=== PATIENT | female | born 1970 | race Caucasian/White ===

== ENCOUNTER 2024-05-07 09:17 | Emergency (ER) | payer SELFPAY ==
[2024-05-07 09:31] VITALS: BP 142/86; PULSE 75; RESP 16; TEMP 36.7; O2SAT 100; BMI 26.6
--- NOTE | 2024-05-07 09:48 | CT_ITS ---
WS: [id number] CT cervical spine. Additional two-dimensional coronal and sagittal reconstruction was performed. 05/07/2024 Clinical Data: neck pain w R arm pain Comparison: None. DLP: 224.[address] scans at [facility] use at least one of these dose optimization techniques: automated exposure control; mA and/or kV adjustment per patient size (includes targeted exams where dose is matched to clinical indication); or iterative reconstruction. Findings: No compression fractures are seen. There is degenerative disc narrowing at C4-C5 and C5-C6 with osteophyte formation. There is loss of the normal lordotic curvature. The spinous processes are in good alignment. The odontoid is unremarkable. There is no prevertebral soft tissue swelling. The soft tissues of the cervical spine and the lung apices are not remarkable. CT/CT cervical spin wo con* [id number] Impression: 1. Degenerative disc narrowing at C4-C5 and C5-C6 with osteophytes. 2. Loss of normal lordotic curvature.
[2024-05-07 09:56] VITALS: BP 138/84; PULSE 83; O2SAT 100
--- NOTE | 2024-05-07 10:24 | ED_ITS ---
HPI - Extremity Problem General: Chief complaint: Extremity Problem,Nontraumatic Stated complaint: right side arm pain Time Seen by Provider: 05/07/24 09:35 History of Present Illness: 53-year-old female who presents to the e mergency room with complaint of neck pain with pain radiating to the right arm. States it began after she had a coughing fit while she was in the shower. No previous surgeries to the neck. No other traumatic injuries or falls. Associated symptoms: Deny chest pain, fever(s) or rash Related Data Previous Rx's ?Medication ?Instructions ?Recorded diclofenac sodium 75 mg 75 mg PO Q12H PRN pain #20 t abs 05/07/24 tablet,delayed release prednisone 20 mg tablet 20 mg PO TID #15 tabs tizanidine 4 mg tablet 4 mg PO Q6H PRN muscle spast icity 05/07/24 #20 tabs Allergies Allergy/AdvReac Type Severity Reaction Status Date / Time No Known Allergies Allergy Verified 05/07/24 09:34 Review of Systems Const: Denies: fever(s) or chills Card: Denies: chest pain Resp: Denies: dyspnea GI: Denies: abdominal pain : Denies: dysuria, urinary frequency or urinary urgency Musc: Reports: neck pain; Denies: back pain Skin/Breast: Denies: rash Physical Exam Const: GENERAL APPEARANCE: cooperative ORIENTATION/CONSCIOUSNESS: Yes awake, Yes oriented to person, Yes oriented to place and Yes oriented to time HENMT: COMMON NORMALS: normocephalic, atraumatic and hearing grossly normal bilaterally HEAD & SCALP: normocephalic and atraumatic Resp: COMMON NORMALS: normal respiratory effort, No retractions, No use of accessory muscles and clear to auscultation bilaterally AUSCULTATION: clear to auscultation bilaterally Cardio: COMMON NORMALS: regular rate, regular rhythm and No murmurs present (Cardio) RATE: regular rate RHYTHM: regular rhythm Extremity: COMMON NORMALS: normal to inspection, capillary refill normal, no clubbing, cyanosis or edema, no calf tenderness and no pedal edema Neuro: SENSORIUM/ORIENTATION: Yes oriented to person, Yes oriented to place and Yes oriented to time OTHER: Brachioradialis tendon reflex bilaterally is +1/4. 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 Will discharge patient home steroid taper antiemetics anti-inflammatories and have her follow-up with orthospine clinic for further evaluation including possible advanced imaging if felt appropriate Lab Data Radiology Impressions Cervical Spine CT 05/07/24 09:48 Impression: 1. Degenerative disc narrowing at C4-C5 and C5-C6 with osteophytes. 2. Loss of normal lordotic curvature. All radiology interpretation(s) finalized by discharge Discharge Plan Discharge Patient Disposition: Home Clinical Impression: Cervical radiculopathy Condition: Stable Prescriptions: New tizanidine 4 mg tablet 4 mg PO Q6H PRN (Reason: muscle spasticity) Qty: 20 0RF Rx Instructions: do not exceed 3 doses per 24 hrs prednisone 20 mg tablet 20 mg PO TID Qty: 15 0RF Rx Instructions: 1 p.o. 3 times daily x3 days, 1 p.o. twice daily x2 days, 1 p.o. daily x2 days diclofenac sodium 75 mg tablet,delayed release (DR/EC) 75 mg PO Q12H PRN (Reason: pain) Qty: 20 0RF Discharge Orders: Discharge ED (Routine); Ordered 05/07/24 Ordered By: Mejia Awan Discharge Diet: Usual diet Discharge Activity: Increase activity as tolerated Patient Instructions: Opioid Safety, Pain Management Activity Restrictions/Additional Instructions: Thank you for choosing [facility] for your healthcare needs today. It is very important that you follow up as instructed or that you return to the Emergency Department should you have concerns or if your condition changes or worsens in any way. You were seen in the emergency room with complaint of neck pain with pain radiating to your right arm. CT shows some Arthritic changes and degenerative disc changes. Recommend that you follow-up with orthopedic spine surgery they can do further advanced imaging if deemed appropriate in the interim we will put you on a course of prednisone and use diclofenac and tizanidine as needed. Print Language: Armenian Coding Level of Care Code ED General Foreman for Alvarez Hudson
[2024-05-07] MEDS: dexamethasone 10 mg/mL INJ IM (10:51)
[2024-05-07] MEDS: ketorolac 30 mg/mL INJ IVP (10:52)
[2024-05-07] MEDS: orphenadrine 30 mg/mL Inj 2 mL 60 MG IM (10:52)
--- NOTE | 2024-05-11 08:59 | DCPLANNER ---
Message sent to Ortho-Medical Decision Making Cervical radiculopathy. Will discharge patient home steroid taper antiemetics anti-inflammatories and have her follow-up with orthospine clinic for further evaluation including possible advanced imaging if felt appropriate
== END 2024-05-07 13:09 | disposition home or self-care (01) ==
PROVIDERS: Emergency Provider Family Medicine
DX: M54.12 Radiculopathy, cervical region (principal)
CPT/HCPCS: 72125; 96372; 96374; 99285; J1100; J1885; J2360

== ENCOUNTER 2024-05-15 12:22 | Emergency (ER) | payer SELFPAY ==
[2024-05-15 12:50] VITALS: BP 157/95; PULSE 81; RESP 18; TEMP 36.6; O2SAT 99; BMI 26.6
--- NOTE | 2024-05-15 13:10 | W.ED.EXTPRO ---
HPI - Extremity Problem General: Chief complaint: Extremity Problem,Nontraumatic Stated complaint: roight should pain Time Seen by Provider: 05/15/24 13:06 History of Present Illness: 53-year-old female presents emergency room with complaints of right shoulder pain. She was seen on 05/07 denies similar complaints. Patient states that began after she had coughed while in the shower and suddenly felt the pain shooting down her from her neck into her right shoulder and arm. CT done at previous visit showed arthritic changes in the cervical spine as well as loss of disc space. Patient was treated with anti-inflammatories steroids and muscle relaxers referred to the orthopedic spine clinic. Associated symptoms: Deny chest pain, fever(s) or rash Related Data Previous Rx's ?Medication ?Instructions ?Recorded diclofenac sodium 75 mg 75 mg PO Q12H PRN pain #20 tabs 05/07/24 tablet,delayed release prednisone 20 mg tablet 20 mg PO TID #15 tabs 05/07/24 tizanidine 4 mg tablet 4 mg PO Q6H PRN muscle spasticity 05/07/24 #20 tabs pregabalin 75 mg capsule (Lyrica) 75 mg PO BID #60 caps 05/15/24 Allergies Allergy/AdvReac Type Severity Reaction Status Date / Time No Known Allergies Allergy Verified 05/07/24 09:34 Review of Systems Const: Denies: fever(s) or chills Card: Denies: chest pain Resp: Denies: dyspnea GI: Denies: abdominal pain : Denies: dysuria, urinary frequency or urinary urgency Musc: Denies: neck pain or back pain Skin/Breast: Denies: rash Physical Exam Const: COMMON NORMALS: no acute distress GENERAL APPEARANCE: cooperative and comfortable ORIENTATION/CONSCIOUSNESS: Yes awake, Yes oriented to person, Yes oriented to place and Yes oriented to time HENMT: COMMON NORMALS: normocephalic, atraumatic and hearing grossly normal bilaterally HEAD & SCALP: normocephalic and atraumatic Resp: COMMON NORMALS: normal respiratory effort, No retractions, No use of accessory muscles and clear to auscultation bilaterally AUSCULTATION: clear to auscultation bilaterally Cardio: COMMON NORMALS: regular rate, regular rhythm and No murmurs present (Cardio) RATE: regular rate RHYTHM: regular rhythm Extremity: COMMON NORMALS: normal to inspection, capillary refill normal, no clubbing, cyanosis or edema, no calf tenderness and no pedal edema OTHER: Examination of the right arm and shoulder neurovascular intact full range of motion negative for signs of impingement. No pain with abduction no difficulty with flexion. No pain with internal or external rotation. Neuro: SENSORIUM/ORIENTATION: Yes oriented to person, Yes oriented to place and Yes oriented to time Skin: COMMON NORMALS: no rashes or lesions noted GENERAL SKIN EXAM: no rashes or lesions noted Course Vital Signs: Vital signs: Vital Signs Temperature 97.8 F 05/15/24 12:50 Pulse Rate 75 05/15/24 13:59 Respiratory Rate 16 05/15/24 13:59 Blood Pressure 137/78 05/15/24 13:59 Pulse Oximetry 97 05/15/24 13:59 Oxygen Delivery Me thod Room Air 05/15/24 12:50 MDM - Extremity (Nontraumatic) Medical Decision Making Exam and history still more consistent with cervical nerve impingement irritation. He still has full function but does have radicular-like pain encouraged to follow-up with orthopedic spine surgery where they can do further imaging if felt appropriate. Continue to use diclofenac and tizanidine as needed started Lyrica 75 twice daily. EKG done does not show any acute changes and x-ray of the right shoulder did not show any acute arthritic changes no fractures Medical Records I reviewed the patient's medical records. Lab Data I reviewed the patient's lab results. Radiology Impressions Shoulder X-Ray 05/15/24 13:12 IMPRESSION: No acute findings. All radiology interpretation(s) finalized by discharge Discharge Plan Discharge Patient Disposition: Home Clinical Impression: Cervical radiculopathy Condition: Stable Prescriptions: New pregabalin [Lyrica] 75 mg capsule 75 mg PO BID Qty: 60 0RF No Action tizanidine 4 mg tablet 4 mg PO Q6H PRN (Reason: muscle spasticity) Qty: 20 0RF Rx Instructions: do not exceed 3 doses per 24 hrs prednisone 20 mg tablet 20 mg PO TID Qty: 15 0RF Rx Instructions: 1 p.o. 3 times daily x3 days, 1 p.o. twice daily x2 days, 1 p.o. daily x2 days diclofenac sodium 75 mg tablet,delayed release (DR/EC) 75 mg PO Q12H PRN (Reason: pain) Qty: 20 0RF Discharge Orders: Discharge ED (Routine); Ordered 05/15/24 Ordered By: Mejia Awan Discharge Diet: Usual diet Discharge Activity: Resume usual activity Patient Instructions: Opioid Safety, Pain Management Activity Restrictions/Additional Instructions: Thank you for choosing [facility] for your healthcare needs today. It is very important that you follow up as instructed or that you return to the Emergency Department should you have concerns or if your condition changes or worsens in any way. You are seen in the emergency room with complaint of right arm pain. X-ray shoulder is negative. EKG did not show any acute changes. Your description of symptoms is consistent with a cervical nerve root irritation. You had related you had improvement with the steroids then worsened again recommend that you start Lyrica 75 mg 1 tablet twice a day. Follow-up with orthopedic clinic for further evaluation. No sign of rotator cuff injury on exam today Print Language: Turkish Coding Level of Care Code ED Web Press Jogger for Alvarez Hudson
--- NOTE | 2024-05-15 13:12 | XRR_ITS ---
PROCEDURE INFORMATION: Exam: XR Right Shoulder Exam date and time: 05/15/2024 1:12 PM Age: 53 years old Clinical indication: Pain; Shoulder; Right TECHNIQUE: Imaging protocol: Radiologic exam of the right shoulder. Views: 2 or more views. COMPARISON: CT cervical spin wo con* [id number] 05/07/2024 10:51 AM FINDINGS: Bones/joints: Mild acromioclavicular and glenohumeral narrowing and spurring. No fracture or dislocation. No acute osseous or joint abnormality. Soft tissues: Normal. XR/XR shoulder RT min 2V* [id number] IMPRESSION: No acute findings.
--- NOTE | 2024-05-15 13:51 | ECG_ITS ---
[facility] Date: 2024-05-15 Pat Name: Malissa Armas Department: Room: Gender: Female Market Development Director: : 1970 Requested By: Mejia Momin Order Number: [id number] Reading MD: Measurements Intervals [place] Rate: 67 P: 68 ME: 129 QRS: 50 QRSD: 74 T: 51 QT: 396 QTc: 419 Interpretive Statements SINUS RHYTHM LEFT ATRIAL ENLARGEMENT [-0.15mV P-WAVE IN V1/V2] SEPTAL MYOCARDIAL INFARCTION , OF INDETERMINATE AGE [40+ ms Q WAVE IN V1/V2] [email or web address]
[2024-05-15 13:59] VITALS: BP 137/78; PULSE 75; RESP 16; O2SAT 97
== END 2024-05-15 13:58 | disposition home or self-care (01) ==
PROVIDERS: Emergency Provider Family Medicine
DX: M54.12 Radiculopathy, cervical region (principal)
CPT/HCPCS: 73030; 93005; 99284

== ENCOUNTER 2024-11-11 15:26 | Emergency (ER) | payer SELFPAY ==
[2024-11-11 15:28] VITALS: BP 169/104; PULSE 71; RESP 16; TEMP 36.6; O2SAT 98; BMI 28.0
--- NOTE | 2024-11-11 15:34 | CTR_ITS ---
PROCEDURE INFORMATION: Exam: CT Abdomen And Pelvis Without Contrast Exam date and time: 11/11/2024 3:42 PM Age: 54 years old Clinical indication: Injury or trauma; Fall; Blunt; Abdominal wall; Additional info: Right hip hematoma TECHNIQUE: Imaging protocol: Computed tomography of the abdomen and pelvis without contrast. Radiation optimization: All CT scans at this facility use at least one of these dose optimization techniques: automated exposure control; mA and/or kV adjustment per patient size (includes targeted exams where dose is matched to clinical indication); or iterative reconstruction. COMPARISON: No relevant prior studies available. RADIATION DOSE METRICS: Total DLP (mGy-cm): 949.13 FINDINGS: Liver: Normal. No mass. Gallbladder and biliary ducts: Normal. No calcified stones. No ductal dilation. Pancreas: Normal. No ductal dilation. Spleen: Normal. No splenomegaly. Adrenal glands: Normal. No mass. Kidneys and ureters: Normal. No hydronephrosis. Stomach and bowel: Colonic diverticulosis is present without diverticulitis. Bowel has normal caliber. Appendix: No evidence of appendicitis. Intraperitoneal space: Unremarkable. No free air. No significant fluid collection. Vasculature: Aortoiliac atherosclerotic disease is seen without evidence of aneurysm. Lymph nodes: Unremarkable. No enlarged lymph nodes. Urinary bladder: Unremarkable as visualized. Reproductive: Unremarkable as visualized. Bones/joints: Degeneration related grade 1 anterolisthesis is present at L4/L5. Grade 1 degenerative retrolisthesis L5-S1. No acute or suspicious osseous abnormality. Soft tissues: Acute hematoma measuring 7.3 x 4.9 x 5.9 cm in the subcutaneous fat of the right lateral abdominal wall just above the level of the iliac crest. CT/CT abdomen pelvis [facility] [id number] IMPRESSION: Acute hematoma measuring 7.3 x 4.9 x 5.9 cm in the subcutaneous fat of the right lateral abdominal wall just above the level of the iliac crest.
--- NOTE | 2024-11-11 15:35 | W.ED.FALL ---
HPI - Fall General: Chief Complaint: Fall Stated Complaint: hematoma on R hip Time Seen by Provider: 11/11/24 15:28 History of Present Illness: 54-year-old woman who says she takes no medications who presents to the emergency room by ambulance after she had a fall last night but then today she was bending over and she noticed a painful swelling in her right upper hip and lateral abdominal area. She appears to have a large hematoma there. She is not on any anticoagulation. She had no head injury. She is ambulatory. She is complaining of some dysuria. Related Data Previous Rx's ?Medication ?Instructions ?Recorded diclofenac sodium 75 mg 75 mg PO Q12H PRN pain #20 tabs 05/07/24 tablet,delayed release prednisone 20 mg tablet 20 mg PO TID #15 tabs 05/07/24 tizanidine 4 mg tablet 4 mg PO Q6H PRN muscle spasticity 05/07/24 #20 tabs pregabalin 75 mg capsule (Lyrica) 75 mg PO BID #60 caps 05/15/24 cefdinir 300 mg capsule 300 mg PO BID 5 days #10 caps 11/11/24 hydrocodone 5 mg-acetaminophen 325 1 tab PO Q6H PRN pain #20 tabs 11/11/24 mg tablet polyethylene glycol 3350 17 17 g PO DAILY #510 grams 11/11/24 gram/dose oral powder (Miralax) Allergies Allergy/AdvReac Type Severity Reaction Status Date / Time No Known Allergies Allergy Verified 05/07/24 09:34 Review of Systems Narrative: Constitutional symptoms: Negative except as documented in HPI. Skin symptoms: Negative except as documented in HPI. Eye symptoms: Negative except as documented in HPI. ENMT symptoms: Negative except as documented in HPI. Respiratory symptoms: Negative except as documented in HPI. Cardiovascular symptoms: Negative except as documented in HPI. Gastrointestinal symptoms: Negative except as documented in HPI. Genitourinary symptoms: Negative except as documented in HPI. Musculoskeletal symptoms: Negative except as documented in HPI. Neurologic symptoms: Negative except as documented in HPI. Psychiatric symptoms: Negative except as documented in HPI. Endocrine symptoms: Negative except as documented in HPI. Physical Exam Narrative: EXAM NARRATIVE: General: Alert, no acute distress. Skin: Warm, dry. Head: Normocephalic, atraumatic. Neck: Supple, trachea midline. Eye: Extraocular movements are intact. Ears, nose, mouth and throat: mucosa moist. Cardiovascular: Regular, Normal peripheral perfusion. Respiratory: Lungs are clear to auscultation, respirations are non-labored, breath sounds are equal, Symmetrical chest wall expansion. Gastrointestinal: Soft, Nontender, Non distended Musculoskeletal: Normal ROM, no deformity. Large hematoma over the lateral abdominal wall and upper pelvic area. Quite tender to palpation. Neurological: Alert and oriented, No focal neurological deficit observed. Psychiatric: Cooperative, appropriate mood & affect. Course Vital Signs: Vital signs: Vital Signs Temperature 97.9 F 11/11/24 15:28 Pulse Rate 76 11/11/24 17:28 Respiratory Rate 16 11/11/24 15:28 Blood Pressure 160/80 11/11/24 17:28 Pulse Oximetry 92 11/11/24 17:28 Oxygen Delivery Me thod Room Air 11/11/24 17:28 MDM - Fall Medical Decision Making Medical decision making: Differential diagnosis including but not limited to and based on the above HPI, review of systems and physical exam: CT of the abdomen pelvis to evaluate this hematoma and to rule out any underlying pelvic fractures that might of caused this. Orders placed to evaluate differential diagnosis based on the above differential, HPI and physical exam CT of the abdomen pelvis shows an acute hematoma around 7 x 5 x 6. Subcutaneous fat. This was reviewed and interpreted by myself the emergency room physician. I also reviewed the radiology report. Lab Review: Laboratory results were reviewed and interpreted by myself the emergency room physician. Urinalysis shows minimal signs of infection. 0-5 whites with 1+ bacteria. We we will treat her with 5 days of antibiotics I reviewed the patient's medical record. Reexamination: Patient remained stable. No increased work of breathing. No altered mental status. No focal motor deficits. No significant changes in hematoma size since has been here. Assessment and plan: Abdominal wall hematoma ?Hemet in the emergency room - Discharged home - Discussed plan with patient. Answered any questions. - Evaluation and treatment of this problem were appropriate in the emergency setting. Lab Data Radiology Impressions Abdomen/Pelvis CT 11/11/24 15:34 IMPRESSION: Acute hematoma measuring 7.3 x 4.9 x 5.9 cm in the subcutaneous fat of the right lateral abdominal wall just above the level of the iliac crest. Laboratory Results Urine Color Yellow (Yellow) 11/11/24 16:48 Urine Appearance Clear (CLEAR) 11/11/24 16:48 Urine pH 7.0 (5-7) 11/11/24 16:48 Ur Specific Dell 1.011 (1.005-1.030) 11/11/24 16:48 Urine Protein Negative (Negative) 11/11/24 16:48 Urine Glucose (UA) Negative (Normal) 11/11/24 16:48 Urine Ketones Negative (Negative) 11/11/24 16:48 Urine Blood Negative (Negative) 11/11/24 16:48 Urine Nitrate Negative (Negative) 11/11/24 16:48 Urine Bilirubin Negative (Negative) 11/11/24 16:48 Urine Urobilinogen 0.2 mg/dL (Negative) 11/11/24 16:48 Ur Leukocyte Esterase Negative (Negative) 11/11/24 16:48 Urine RBC 3-5 /hpf (0-2) 11/11/24 16:48 Urine WBC 0-5 /hpf (0-5) 11/11/24 16:48 Ur Squamous Epith Cells 6-10 /hpf (0-5) 11/11/24 16:48 Amorphous Sediment Not Reportable 11/11/24 16:48 Urine Bacteria 1+ /hpf (NONE) H 11/11/24 16:48 Hyaline Casts 0-4 /lpf H 11/11/24 16:48 All radiology interpretation(s) finalized by discharge Discharge Plan Discharge Patient Disposition: Home Clinical Impression: Abdominal wall hematoma Condition: Stable Prescriptions: New hydrocodone-acetaminophen 5-325 mg tablet 1 tab PO Q6H PRN (Reason: pain) Qty: 20 0RF polyethylene glycol 3350 [Miralax] 17 gram/dose powder 17 g PO DAILY Qty: 510 0RF Rx Instructions: Take 1 scoop daily while taking pain medications. cefdinir 300 mg capsule 300 mg PO BID 5 Days Qty: 10 0RF No Action pregabalin [Lyrica] 75 mg capsule 75 mg PO BID Qty: 60 0RF tizanidine 4 mg tablet 4 mg PO Q6H PRN (Reason: muscle spasticity) Qty: 20 0RF Rx Instructions: do not exceed 3 doses per 24 hrs prednisone 20 mg tablet 20 mg PO TID Qty: 15 0RF Rx Instructions: 1 p.o. 3 times daily x3 days, 1 p.o. twice daily x2 days, 1 p.o. daily x2 days diclofenac sodium 75 mg tablet,delayed release (DR/EC) 75 mg PO Q12H PRN (Reason: pain) Qty: 20 0RF Discharge Orders: Discharge ED (Routine); Ordered 11/11/24 Ordered By: Johana Tong Discharge Diet: Usual diet Discharge Activity: Increase activity as tolerated Patient Instructions: Opioid Safety, Pain Management, Patient Portal & New Instructions Activity Restrictions/Additional Instructions: Thank you for choosing [facility] for your healthcare needs today. You have been screened and evaluated and felt safe for discharge. Health conditions do change or evolve sometimes and as such it is important that you follow up with your Primary Doctor to be re checked, 3-5 days is a general good time frame for follow up. You are always welcome to return to the ED for re assessment if your symptoms are worsening or you have new concerns Print Language: Macanese Coding Level of Care Code ED Director Of Security for Alvarez Hudson
[2024-11-11 16:02] VITALS: BP 169/104; O2SAT 97
[2024-11-11] MEDS: HYDROcodone-acetaminophen 10-325 mg Tablet 1 TAB PO (16:40)
[2024-11-11 16:42] VITALS: BP 164/85; PULSE 74; O2SAT 99
--- OUTSIDE RECORDS SUMMARY | 2024-11-11 16:42 | XMS_ITS | Clinical Summary ---
Author Organization [facility] Address [address] [facility] [place] [address] Phone Care Team Providers Care Medical Transcriber Name Role Phone Arslan Thompson MD Primary Care Pro vider Allergies Active Allergy Reactions Criticality Noted Date Comments No Known Drug Allergies 10/19/2015 Medications tiZANidine (ZANAFLEX) 4 MG tabletIndicatio ns:Musculoskele mamta pain Take one tablet (4 mg total) by mouth every 8 (eight) hours as needed Do not drive vehicle or operate machinery while taking this medication. Can cause drowsiness. 9 tablet 5 Active Active Problems Problem Noted Date Diagnosed Date Routine general medical exam ination at a health care facility 08/05/2012 Immunizations Immunization Administration Dates Next Due Pneumo Polysaccharide 23-valent 02/18/2008 Tdap 02/18/2008 Family History Medical History Relation Name Comments High Blood Pressure Brother 1 Heart failure Brother 2 Polycystic kidney disease Brother 3 Heart attack Father Heart Bypass Surgery Mother Kidney failure Mother Polycystic kidney disease Mother Breast cancer Paternal Grandmother Asthma Son Relation Name Status Comments Brother 1 Brother 2 Brother 3 Father Mother Paternal Grandmother Son Social History Tobacco Use Types Packs/Day Years Used Date Smoking Tobacco: Every Day Cigarettes Smokeless Tobacco: Never Tobacco Cessation:Ready to Q uit: Not Asked; Counseling Given: Not Answered Alcohol Use Standard Drinks/Week Comments Yes 0 (1 standard drink = 0.6 oz pur e alcohol) socially Comments No Sex and Gender Information Value Date Recorded Sex Assigned at Not on file Legal Sex Female 5:43 PM [employer] Gender Identity Not on file Sexual Orientation Not on file Last Filed Vital Signs Vital Sign Reading Time Taken Comments Blood Pressure 154/73 05/05/2024 2:29 PM CDT Pulse 80 05/05/2024 2:29 PM CDT Temperature 36.7 C (98 F) 05/05/2024 11:25 AM CDT Respiratory Rate 18 05/05/2024 2:29 PM CDT Oxygen Saturation 100% 05/05/2024 2:29 PM CDT Inhaled Oxygen Concentration - - Weight 86.2 kg (190 lb) 05/05/2024 11:25 AM CDT Height 172.7 cm (5' 8 ) 05/05/2024 11:25 AM CDT Body Mass Index 28.89 05/05/2024 11:25 AM CDT Plan of Treatment Health Maintenance Due Date Last Done Comments Colonoscopy Every 6 Months 1970 Colorectal Cancer Screening Annual FOBT/FIT Test 08/01 Colorectal Cancer Screening Cologuard 1970 Colorectal Cancer Screening Flex Sigmoidoscopy 971 Annual Depression Screening 1981 Annual Physical 1988 Hepatitis C Antibody Screen 1988 Cervical Cancer Screening 08/02/1991 Pneumococcal Vaccine Age 50+ (2 of 2 - PCV) 02/17/2009 02/18/2008 Mammogram 2010 Colorectal CA Screen 10 Year Colonoscopy 08/02/2015 Colorectal Cancer Screening 08/02/2015 DTap/Tdap/Td Vaccines (2 - Td or Tdap) 02/17/2018 Zoster Vaccine (Shingles) (1 of 2) 2020 Flu Vaccine (#1) 10/18/2024 Influenza Vaccine 10/18/[address] [facility] P Care Teams Medical Transcriber Relationship Specialty Start Date End Date Arslan Thompson MD [address] [place] [id number] PCP - General Family Medicine 10/19/15
[2024-11-11 17:23] LABS: Glucose Urine UA Negative (Normal); Nitrate Urine Negative (Negative); Specific Gravity, Urine 1.011 (1.005-1.030)
[2024-11-11 17:28] VITALS: BP 160/80; PULSE 76; O2SAT 92
[2024-11-11 18:03] VITALS: BP 152/97; PULSE 73; O2SAT 96
== END 2024-11-11 18:04 | disposition home or self-care (01) ==
PROVIDERS: Emergency Provider Emergency Medicine
DX: S30.1XXA Contusion of abdominal wall, initial encounter (principal); W19.XXXA Unspecified fall, initial encounter
CPT/HCPCS: 74176; 81001; 99284; J9999